=== PATIENT | male | born 1960 | race African-American/Black ===

== ENCOUNTER 2018-12-29 23:43 | Emergency (ER) | payer SELFPAY ==
[2018-12-30] MEDS ORDERED: IPRATROPIUM/ALBUTEROL 0.5-2.5 MG/3 ML AMPUL NEB ONE (02:07)
[2018-12-30] MEDS ORDERED: ACETAMINOPHEN 325 MG TABLET PO ONE (02:07)
--- NOTE | 2018-12-30 02:09 | ER Document Report ---
ED Medical Screen (RME) - General Chief Complaint: Hiccoughs/ chest pain Stated Complaint: SHORTNESS OF BREATH Time Seen by Provider: 12/30/18 02:05 Primary Care Provider: ELDA LAUGHLIN MD [Primary Care Provider] - Follow up as needed Notes: 58-year-old male with a past medical history of smoking and COPD/asthma, chief complaint of almost 1 week of worsening symptoms of cough, chest tightness, difficulty breathing, and he now has a fever on evaluation. Unsure how long he has had a fever. Also states that he has a draining place in his back which is chronic. States intermittently he will get extremely tight mucus where he needs to hit his chest to clear it. at bedside. TRAVEL OUTSIDE OF THE [place] IN LAST 30 DAYS: No - Related Data Allergies/Adverse Reactions: No Known Allergies Allergy (Verified 01/06/15 11:20) Past Medical History - Past Medical History Cardiac Medical History: Reports: Hx Hypertension Pulmonary Medical History: Reports: Hx Bronchitis - Immunizations Immunizations up to date: Yes Hx Diphtheria, Pertussis, Tetanus Vaccination: Yes Physical Exam - Vital signs Vitals: Temp Pulse Resp BP Pulse Ox 100.4 F 86 22 H 130/77 H 95 12/30/18 00:30 12/30/18 00:30 12/30/18 00:30 12/30/18 00:30 12/30/18 00:30 - General General appearance: Other - Slightly ill-appearing but cooperative and oriented - Respiratory Respiratory status: No: Respiratory distress Breath sounds: Decreased air movement, Other - A few scattered wheezes and rhonchi, intermittent tight cough Course - Vital Signs Vital signs: Temp Pulse Resp BP Pulse Ox 100.4 F 86 22 H 130/77 H 95 12/30/18 00:30 12/30/18 00:30 12/30/18 00:30 12/30/18 00:30 12/30/18 00:30 Doctor's Discharge - Discharge Referrals: ELDA LAUHGLIN MD [Primary Care Provider] - Follow up as needed
[2018-12-30 02:58] LABS: A TYPE INFLUENZA AG NEGATIVE (NEGATIVE); B INFLUENZA AG NEGATIVE (NEGATIVE)
[2018-12-30 03:54] LABS: HEMOGLOBIN 14.1 g/dL (13.5-17.0); MEAN CORPUSCULAR HEMOGLOBIN 25.6 pg (27.0-33.4); MEAN CORPUSCULAR HGB CONC 33.5 g/dL (32.0-36.0); MEAN CORPUSCULAR VOLUME 76 fl (80-97); PLATELET COUNT 693 10^3/uL (150-450); RED CELL DISTRIBUTION WIDTH 17.4 % (11.5-14.0); WHITE BLOOD COUNT 13.8 10^3/uL (4.0-10.5)
[2018-12-30 04:14] LABS: ABSOLUTE LYMPHOCYTES# (MANUAL) 1.8 10^3/uL (0.5-4.7); ABSOLUTE MONOCYTES # (MANUAL) 1.7 10^3/uL (0.1-1.4); ABSOLUTE NEUTROPHILS# (MANUAL) 10.4 10^3/uL (1.7-8.2); ALANINE AMINOTRANSFERASE 75 U/L (21-72); ALBUMIN 4.1 g/dL (3.5-5.0); ALKALINE PHOSPHATASE 88 U/L (38-126); ANION GAP 7 (5-19); ASPARTATE AMINO TRANSFERASE 41 U/L (17-59); BASOPHILS % (MANUAL) 0 % (0-2); BILIRUBIN,DIRECT 0.3 mg/dL (0.0-0.4); BILIRUBIN,TOTAL 0.9 mg/dL (0.2-1.3); BLOOD UREA NITROGEN 15 mg/dL (7-20); CALCIUM 9.2 mg/dL (8.4-10.2); CARBON DIOXIDE 30 mmol/L (22-30); CHLORIDE 104 mmol/L (98-107); EOSINOPHILS % (MANUAL) 0 % (0-6); GLUCOSE 133 mg/dL (75-110); LYMPHOCYTES % (MANUAL) 13 % (13-45); MONOCYTES % (MANUAL) 12 % (3-13); POTASSIUM 3.3 mmol/L (3.6-5.0); SEGMENTED NEUTROPHILS % (MAN) 75 % (42-78); TOTAL CELLS COUNTED 100; TOTAL PROTEIN 7.3 g/dL (6.3-8.2)
[2018-12-30 04:15] LABS: ANISOCYTOSIS 2+; BURR CELLS 1+; PLATELET COMMENT INCREASED; POIKILOCYTOSIS 1+; POLYCHROMASIA 1+
--- NOTE | 2018-12-30 04:35 | RADIOLOGY REPORT (SQ) ---
CLINICAL HISTORY: fever, cough, shortness of breath COMPARISON: None. TECHNIQUE: XR CHEST 2 VIEWS 12/30/2018 2:06 AM TRANSPORTATION [employer]ANNER FINDINGS: Cardiac silhouette is normal in size. Lungs are clear without consolidation, atelectasis, mass or edema. There is no pleural effusion. There is no pneumothorax. There are no acute osseous findings. IMPRESSION: Clear lungs.
--- NOTE | 2018-12-30 06:21 | ER Document Report ---
ED General - General Chief Complaint: Shortness Of Breath Stated Complaint: SHORTNESS OF BREATH Time Seen by Provider: 12/30/18 02:05 Primary Care Provider: ELDA LAUGHLIN MD [Primary Care Provider] - Follow up in 3-5 days Notes: Patient is a 58-year-old male with asthma that presents to the emergency department for chief complaint of shortness of breath and cough. Patient is been having symptoms for approximately 1 week, he does have asthma is been wheezing more, he has been using his inhaler the way he should, which she admits to. He denies noting any associated chest pain or rib pain. Denies any fevers, chills, night sweats. He does note though he is been also having some oozing from an abscess he had drained a long time ago, for the last 2 weeks, with a foul odor according to his . They also wanted this evaluated. He has some tenderness in that area, but at this time denies having any pain. He also denies having any nausea, vomiting, abdominal pain, dysuria, hematuria or other symptoms. Past Medical History: Asthma, hypertension Past Surgical History: Abscess drainage Social History: Denies tobacco, alcohol or drug use. Family History: Reviewed and noncontributory for presenting illness Allergies: Reviewed, see documented allergy list. REVIEW OF SYSTEMS: Other than noted above, the 12 point review of systems was reviewed with the patient and were negative, all pertinent findings are included in the HPI. PHYSICAL EXAMINATION: Vital signs reviewed, nursing noted reviewed. GENERAL: Well-appearing, well-nourished and in no acute distress. HEAD: Atraumatic, normocephalic. EYES: Eyes appear normal, extraocular movements intact, sclera anicteric, conjunctiva are normal. ENT: nares patent, oropharynx clear without exudates. Moist mucous membranes. NECK: Normal range of motion, supple without lymphadenopathy LUNGS: Bilateral expiratory wheezing noted throughout all lung zarate, but no acute respiratory distress. HEART: Regular rate and rhythm without murmurs ABDOMEN: Soft, nontender, normoactive bowel sounds. No rebound, guarding, or rigidity. No masses appreciated. EXTREMITIES: Nontender, good range of motion, no pitting or edema. NEUROLOGICAL: No focal neurological deficits. Moves all extremities spontaneously Motor and sensory grossly intact on exam. PSYCH: Normal mood, normal affect. SKIN: Warm, Dry, normal turgor, on the left side of the lumbar back, there is an open wound, with some scant drainage, no appreciable odor at this time, no surr ounding erythema but mild induration, no fluctuance palpated. TRAVEL OUTSIDE OF THE [place] IN LAST 30 DAYS: No - Related Data Allergies/Adverse Reactions: No Known Allergies Allergy (Verified 01/06/15 11:20) Past Medical History - Social History Smoking Status: Current Every Day Smoker Chew tobacco use (# tins/day): No Frequency of alcohol use: Occasional Drug Abuse: None Family History: None, Reviewed & Not Pertinent Patient has suicidal ideation: No Patient has homicidal ideation: No - Past Medical History Cardiac Medical History: Reports: Hx Hypertension Pulmonary Medical History: Reports: Hx Asthma, Hx Bronchitis, Hx COPD Renal/ Medical History: Denies: Hx Peritoneal Dialysis - Immunizations Immunizations up to date: Yes Hx Diphtheria, Pertussis, Tetanus Vaccination: Yes Hx Pneumococcal Vaccination: 10/26/13 Physical Exam - Vital signs Vitals: Temp Pulse Resp BP Pulse Ox 100.4 F 86 22 H 130/77 H 95 12/30/18 00:30 12/30/18 00:30 12/30/18 00:30 12/30/18 00:30 12/30/18 00:30 Course - Re-evaluation Re-evalutation: Patient seen and examined vital signs reviewed. Laboratory data and imaging were ordered as appropriate for the patient's presenting symptoms and complaint, with consideration of any critical or life threatening conditions that may be associated with their obtained history and exam as noted above. Patient was treated with DuoNeb breathing treatment Results were reviewed when available and demonstrated mild leukocytosis, and mild hyperkalemia The patient was re-evaluated and was improved after breathing treatments Evaluation was most consistent with acute asthma exacerbation, and skin abscess, will treat the patient with doxycycline for the skin abscess, advised him to use his inhaler, given a prescription for steroid for the asthma. Results were discussed with the patient at this point, after careful consideration I feel that that patient can be discharged from the emergency department, the patient was educated treatments and reasons to return to the emergency department based on their presumed diagnosis as noted above, they were advised to followup with a primary care physician in 2-3 days. Patient was agreeable to plan of care. *Note is created using voice recognition software and may contain spelling, syntax or grammatical errors. Laboratory 12/30/18 12/30/18 12/30/18 02:28 03:29 03:29 WBC 13.8 H RBC 5.50 Hgb 14.1 Hct 42.0 MCV 76 L MCH 25.6 L MCHC 33.5 RDW 17.4 H Plt Count 693 H Total Counted 100 Seg Neutrophils % Not Reportable Seg Neuts % (Manual) 75 Lymphocytes % Not Reportable Lymphocytes % (Manual) 13 Monocytes % Not Reportable Monocytes % (Manual) 12 Eosinophils % Not Reportable Eosinophils % (Manual) 0 Basophils % Not Reportable Basophils % (Manual) 0 Absolute Neutrophils Not Reportable Abs Neuts (Manual) 10.4 H Absolute Lymphocytes Not Reportable Abs Lymphs (Manual) 1.8 Absolute Monocytes Not Reportable Abs Monocytes (Manual) 1.7 H Absolute Eosinophils Not Reportable Absolute Eos (Manual) 0.0 Absolute Basophils Not Reportable Abs Basophils (Manual) 0.0 Platelet Comment INCREASED Polychromasia 1+ Poikilocytosis 1+ Anisocytosis 2+ [place] Cells 1+ Sodium 141.0 Potassium 3.3 L Chloride 104 Carbon Dioxide 30 Anion Gap 7 BUN 15 Creatinine 1.02 Est GFR ( Amer) > 60 Est GFR (Non-Af Amer) > 60 Glucose 133 H Calcium 9.2 Total Bilirubin 0.9 Direct Bilirubin 0.3 Neonat Total Bilirubin Not Reportable Neonat Direct Bilirubin Not Reportable Neonat Indirect Bili Not Reportable AST 41 ALT 75 H Alkaline Phosphatase 88 Troponin I Total Protein 7.3 Albumin 4.1 Influenza A (Rapid) NEGATIVE Influenza B (Rapid) NEGATIVE 12/30/18 03:29 WBC RBC Hgb Hct MCV MCH MCHC RDW Plt Count Total Counted Seg Neutrophils % Seg Neuts % (Manual) Lymphocytes % Lymphocytes % (Manual) Monocytes % Monocytes % (Manual) Eosinophils % Eosinophils % (Manual) Basophils % Basophils % (Manual) Absolute Neutrophils Abs Neuts (Manual) Absolute Lymphocytes Abs Lymphs (Manual) Absolute Monocytes Abs Monocytes (Manual) Absolute Eosinophils Absolute Eos (Manual) Absolute Basophils Abs Basophils (Manual) Platelet Comment Polychromasia Poikilocytosis Anisocytosis [place] Cells Sodium Potassium Chloride Carbon Dioxide Anion Gap BUN Creatinine Est GFR ( Amer) Est GFR (Non-Af Amer) Glucose Calcium Total Bilirubin Direct Bilirubin Neonat Total Bilirubin Neonat Direct Bilirubin Neonat Indirect Bili AST ALT Alkaline Phosphatase Troponin I < 0.012 Total Protein Albumin Influenza A (Rapid) Influenza B (Rapid) Chest X-Ray 12/30/18 02:06 IMPRESSION: Clear lungs. - Vital Signs Vital signs: Temp Pulse Resp BP Pulse Ox 97.7 F 86 14 115/88 H 95 12/30/18 06:34 12/30/18 00:30 12/30/18 06:34 12/30/18 06:34 12/30/18 06:34 - Laboratory Result Diagrams: 12/30/18 03:29 12/30/18 03:29 Laboratory results interpreted by me: 12/30/18 12/30/18 03:29 03:29 WBC 13.8 H MCV 76 L MCH 25.6 L RDW 17.4 H Plt Count 693 H Abs Neuts (Manual) 10.4 H Abs Monocytes (Manual) 1.7 H Potassium 3.3 L Glucose 133 H ALT 75 H Discharge - Discharge Clinical Impression: Acute asthma exacerbation Qualifiers: Asthma severity: unspecified severity Asthma persistence: unspecified Qualified Code(s): J45.901 - Unspecified asthma with (acute) exacerbation Skin abscess Qualifiers: Site of cutaneous abscess: trunk Site of cutaneous abscess of trunk: back Qualified Code(s): L02.212 - Cutaneous abscess of back [any part, except buttock] Condition: Stable Disposition: HOME, SELF-CARE Instructions: Abscess ([facility]), Asthma ([facility]) Additional Instructions: Please use your albuterol inhaler 2 puffs 4 times daily for the next 5 days, and then every 4 hours as needed, please take the prednisone as prescribed, and the biotic prescribed for the abscess on your back. And follow-up with your primary care physician. Prescriptions: RX: Doxycycline Hyclate 100 mg PO BID #14 capsule RX: Prednisone [Deltasone 10 mg Tablet] 40 mg PO DAILY #20 tablet Referrals: ELDA LAUGHLIN MD [Primary Care Provider] - Follow up in 3-5 days
[2018-12-30 06:41] VITALS: BP 115/88
--- NOTE | 2018-12-31 10:19 | EKG REPORT ---
SEVERITY:- ABNORMAL ECG - SINUS RHYTHM RAA, CONSIDER BIATRIAL ABNORMALITIES RIGHT AXIS DEVIATION BORDERLINE PROLONGED QT INTERVAL : Confirmed by: Gaby Rossi 31-Dec-2018 10:18:16
== END 2018-12-30 06:41 | disposition home or self-care (01) ==
LOC: ER 23:43
DX: J45.901 Unspecified asthma with (acute) exacerbation (principal); L02.212 Cutaneous abscess of back [any part, except buttock and flank]; F17.200 Nicotine dependence, unspecified, uncomplicated; I10 Essential (primary) hypertension; J44.9 Chronic obstructive pulmonary disease, unspecified
CPT/HCPCS: 93005; 94640; 99285; 36415; 87040; 85025; 80053; 84484; 87804; 71046; 93010; J7620